=== PATIENT | female | born 1945 | race Caucasian/White ===

== ENCOUNTER 2024-05-31 04:13 | Emergency (ER) | payer MEDICARE, OTHER, SELFPAY ==
[2024-05-31] VITALS (8 sets, daily range): BP systolic 110–150; BP diastolic 63–73; BMI 23.1
[2024-05-31] MEDS: MORPHINE ORAL SOLUTION 20 MG PO (05:39)
--- NOTE | 2024-05-31 06:43 | ED.GENMED ---
History of Present Illness
General
Chief Complaint: Fall
Source: patient, spouse and ambulance crew
Exam Limitations: none
Time Seen by Provider: 05/31/24 05:16
Nursing documentation reviewed up to this point in time: agreed with
History of Present Illness
History of Present Illness:
This is an 78-year-old woman who resides at home with her . She has history of metastatic breast cancer, currently residing at home on hospice. Chronically maintained on MS Contin 115 mg twice daily and has MS IR for breakthrough pain 14 mg
as needed. She has a walker as well as a cane for ambulatory assistance but she got up out of bed tonight, did not use her walker nor cane attempted to go to the bathroom, suffered a mechanical fall, falling on her left shoulder. She denies
striking her head, no loss of consciousness. She complains of significant pain about her left shoulder. She denies neck pain. No weakness nor numbness.
She also suffered skin tears to her left posterior elbow but denies elbow nor forearm pain. Small skin tear to right posterior elbow.
She does have 24-hour nonmedical aide who resides with the patient as well as help from her .
Hospice nurse at least twice per week.
The did contact hospice nurse on-call prior to patient arriving via EMS.
She is not maintained on anticoagulants.
Past History
Past History
ED Past Medical History: Cancer (Metastatic breast cancer) and Other (mvp)
ED Past Surgical History: Gynecological
Social History
Tobacco: Non-smoker
Alcohol: None
Drug: None
Personal:
Living: with family
Employment: Retired
Family History
Family History: Other (Noncontributory)
Phy Exam
Physical Exam
Physical Exam:
TRAUMA EXAM:
VITAL SIGNS: Vital signs reviewed, cooperative
DISTRESS: 78-year-old woman appears her stated age. Awake and alert, pleasant, appears in no acute distress. is accompanying.
EYES: Pupils reactive, no orbital trauma
NOSE: No deformity or epistaxis
FACE AND SCALP: No scalp or facial trauma, external canals no blood
NECK: Supple nontender, full range of motion without difficulty nor pain.
BACK: Back nontender, pelvis stable to compression
RESPIRATORY: No distress, breath sounds normal, no tender chest wall
CARDIAC: No murmur, pulses equal and strong
ABDOMEN: Soft nontender bowel sounds normal
SKIN: Warm and dry, minimally pale in color. 5 mm superficial skin tear right posterior elbow. There is 3 cm skin tear left posterior elbow with a 2 cm skin tear left lateral elbow. No active bleeding. Mild local tenderness to palpation. There
is full elbow range of motion without difficulty.
EXTREMITIES: Left shoulder has moderate acute joint effusion with very minimal ecchymosis with moderate tenderness about the left shoulder with markedly limited range of motion left shoulder related to pain. Mild palpable crepitus of left proximal
humerus/shoulder with attempted range of motion. Peripheral pulses are full and equal bilaterally. Hand grasps are full and equal bilaterally.
NEUROLOGICAL: Alert, oriented, no motor deficits
PSYCH: Mood affect normal
Course
Orders/Labs/Results
Orders:
Orders
05/31/24 04:36
CR Shoulder, Trauma - Left Urgent
Comment:
Reason For Exam: fall and injury
Humerus, Left 2 Views [CR Humerus - Left Min 2 Views*] Urgent
Comment:
Reason For Exam: fall and injury
05/31/24 04:53
Oxygen Therapy [O2 Therapy] [RESP] Urgent
Nasal Cannula Liter Flow: 2 LPM
Titrate/Wean O2 to maintain O2 sat greater than (%): 93
Wean Oxygen to Pre Admission Baseline Therapy-if applicable: Yes
Contact provider if nasal cannula O2 requirement > 6 liters: Yes
05/31/24 05:28
Morphine Sulfate [Morphine Oral Solution] 50 mg PO NOW STA
05/31/24 05:30
Splints/Slings/Crut- Treatment ONCE
Sling to: Left Arm
05/31/24 05:38
Morphine Sulfate [Morphine Oral Solution] 20 mg PO NOW STA
Vital Signs
Initial and Last Documented VS:
Initial Vital Signs
Temp Pulse Resp BP Pulse Ox
98.4 F 98 18 150/72 88
05/31/24 04:19 05/31/24 04:19 05/31/24 04:19 05/31/24 04:19 05/31/24 04:19
Last Documented Vital Signs
Temp Pulse Resp BP Pulse Ox
98.4 F 98 18 131/69 93
05/31/24 04:19 05/31/24 04:19 05/31/24 04:19 05/31/24 06:00 05/31/24 06:15
MDM/Problems Addressed
Differential Diagnosis Includes:
Exam concerning for left proximal humerus fracture.
Patient denies head injury, no evidence of scalp injury. Not maintained on anticoagulants.
Resides at home currently on hospice care for metastatic breast CA, narcotic dependent.
Left shoulder and humerus x-ray shows an impacted proximal humerus fracture.
Will treat conservatively, placed in arm sling.
and patient are comfortable going home.
She will be given a dose of morphine sulfate now.
Skin tears of bilateral elbows will be cleansed with normal saline solution and plan for bacitracin, nonstick dressing.
Will reach out to hospice nurse to coordinate home care needs.
Chronic conditions affecting care: Cancer (Metastatic breast cancer, currently on hospice care at home.)
*Radiology
Radiology exam reviewed: preliminary read by ED provider (X-ray shows impacted proximal left humerus fracture.)
*Pulse Oximetry
Patient hypoxic: no
*Critical Care Note
Total Time (30-74mins, 75-104mins- exclusive of procedures): Not Applicable
Update Note
Update Note:
05/31/2024 0654 AM
Patient is somewhat more comfortable after an oral dose of morphine. Skin tears have been cleansed, dressed with bacitracin and nonstick dressing.
X-ray reveals fracture of left humeral head.
She has been placed in an arm sling.
As patient currently on hospice care, we will forego surgical intervention and treat conservatively with arm sling, pain medication.
and patient feels comfortable returning home. Will arrange for ambulance transfer to home.
I have spoken with hospice nurse answering service telephone operator and she will be out today to assess the patient when she is home.
ED Attending Note
-
Portions of this chart may have been created with voice recognition software.� Occasional wrong word or��sound alike� substitutions may have occurred due to the inherent limitations of voice recognition software.
Discharge Plan
Departure
Patient Disposition: Home (Routine Discharge)
Date of Disposition: 05/31/24
Time of Disposition: 07:11
Patient with high blood pressure during this ER visit?: No
Condition: Good
Discharge Problem:
Closed fracture of left proximal humerus
Instructions: How to Use a Shoulder Sling, Upper Arm Fracture ED
Prescriptions:
No Action
cholecalciferol (vitamin D3) 1,000 UNIT capsule
2,000 unit PO DAILY
Baicalin/Catechin
2 tab PO BID
Ganoderma
2 tab PO DAILY
Vitamin K2
10 mg PO DAILY
clonazepam 0.5 mg Tablet
0.5 mg PO TID
gabapentin 300 mg Capsule
300 mg PO BID
Referrals:
UNKNOWN - PT DOES,NOT KNOW [Family Provider] -
Activity Restrictions/Additional Instructions:
Hospice nurse has been contacted and will be out to the house today to evaluate you.
Interventions
Interventions:
*Risk Screen - Suicide Last Done: 05/31/24 04:19
*General Assessment Last Done: 05/31/24 04:19
*Neglect/Abuse Screening Last Done: 05/31/24 04:19
ED- Fall Risk Assessment Last Done: 05/31/24 04:19
*ED COVID-19 Vaccine History Last Done: 05/31/24 04:19
ED-Musculoskeletal Assessment Last Done: 05/31/24 04:46
ED- Neurological Assessment Last Done: 05/31/24 04:46
ED-Skin Assessment Last Done: 05/31/24 04:46
Discharge Date and Time
Print Language: TURKISH
== END 2024-05-31 13:09 | disposition home or self-care (01) ==
LOC: EMR 04:13
PROVIDERS: EMERGENCY PHYSICIAN Emergency Medicine
DX: S42.295A Other nondisplaced fracture of upper end of left humerus, initial encounter for closed fracture (principal); S51.012A Laceration without foreign body of left elbow, initial encounter; S51.011A Laceration without foreign body of right elbow, initial encounter; W19.XXXA Unspecified fall, initial encounter; C50.919 Malignant neoplasm of unspecified site of unspecified female breast; Z51.5 Encounter for palliative care
CPT/HCPCS: 99283; 73030; 73060